=== PATIENT | female | born 1985 | race Caucasian/White ===

== ENCOUNTER → 2024-02-05 | Outpatient (CLI) | payer MEDICAID, SELFPAY ==
--- NOTE | 2024-02-05 14:45 | XR_ITS ---
Examination: MRI left foot, without contrast Date and time of exam: February 05, 2024 1610 hrs. Comparison July 22, 2023 Indications: Injury to the foot 2 months ago, patient standing on the tips of her toes and felt a pop plantar surface of the foot with heel pain Technique: Multiple axial sagittal and coronal images of the left foot have been obtained with the Siemens high-resolution 1.5 [employer] MRI scanner. Images obtained include T2-weighted fat-suppressed sagittal sections, TR 3500, TE 46, T2 weighted coronal fat suppressed images, TR 3050, TE 84, T2-weighted transverse fat suppressed images, TR 3260, TE 63, proton density transverse images, TR 4720 TE 46, and T1 weighted coronal images, TR 560, TE 13. Findings: Marked plantar fasciitis with edema about the plantar fascia near the calcaneal insertion Achilles tendon intact No occult fracture No edema about the flexor or extensor tendons of the second or other toes Mild fluid in the first metatarsophalangeal joint No avascular necrosis, negative for reflex dystrophy pattern Impression: Plantar fascia has partially healed compared to the July 22, 2023 exam Significant plantar fasciitis No occult fracture No flexor or extensor tendinitis currently noted Mild fluid first metatarsophalangeal joint
== END | disposition home or self-care (01) ==
LOC: SMRI 13:50
PROVIDERS: PCP Podiatrist; Referring Provider Podiatrist; Visit Provider Podiatrist
DX: M72.2 Plantar fascial fibromatosis (principal)
CPT/HCPCS: 73718

== ENCOUNTER → 2024-02-15 | Outpatient (CLI) | payer MEDICAID, SELFPAY ==
--- NOTE | 2024-02-15 15:27 | XR_ITS ---
Examination: Knee, right , 3 views Technique: Knee AP, lateral, oblique 3 views Date and time of exam: February 15, 2024 1538 hrs. Indications: Knee pain one year. 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
== END | disposition home or self-care (01) ==
PROVIDERS: PCP Pediatrics; Referring Provider Pediatrics; Visit Provider Physician Assistant
DX: M17.11 Unilateral primary osteoarthritis, right knee (principal)
CPT/HCPCS: 73562

== ENCOUNTER → 2025-01-12 | Outpatient (CLI) | payer MEDICAID, SELFPAY ==
--- NOTE | 2025-01-12 14:29 | XR_ITS ---
Examination: Knee, left, 3 views Technique: Knee AP, lateral, oblique 3 views Date and time of exam: January 12, 2025, 1510 hours INDICATIONS: Injury to the knee 1 month ago, knee pain 1 year. 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
== END | disposition home or self-care (01) ==
LOC: CDIM 14:23
PROVIDERS: Referring Provider Podiatrist; Visit Provider Podiatrist
DX: M17.12 Unilateral primary osteoarthritis, left knee (principal); S89.92XA Unspecified injury of left lower leg, initial encounter; X58.XXXA Exposure to other specified factors, initial encounter
CPT/HCPCS: 73562